=== PATIENT | female | born 1935 | race Caucasian/White ===

== ENCOUNTER 2018-01-08 14:17 | Inpatient (IN) | END 2018-01-12 18:20 | disposition home or self-care (01) | DRG 696 ==

== ENCOUNTER 2018-02-01 11:13 | Emergency (ER) | END 2018-02-01 14:00 | disposition left against medical advice (07) ==

== ENCOUNTER 2018-03-02 13:21 | Emergency (ER) | END 2018-03-02 17:07 | disposition home or self-care (01) ==

== ENCOUNTER 2018-12-20 00:35 | Emergency (ER) | payer MEDICARE, OTHER ==
[~2018-12-20] VITALS: Ht 157.5 cm; Wt 60.0 kg
[~2018-12-20 00:35] MED LIST: ACET500C5 PO; AMOX1TAB9 PO; ATEN-51 PO; CRAN1TAB5 PO; DOCU-144 PO; ISOS30TA67 PO; NITR-58 PO; PHEN97.5 PO; POLY17PO6 PO; RANI150T5 PO; TRAM50TA PO; VALS1TAB76 PO; WARF1TAB PO
[2018-12-20 00:43] VITALS: Ht 157.5 cm; Wt 60.0 kg
== END 2018-12-20 00:45 | disposition left against medical advice (07) ==
LOC: E/R 00:35
DX: Z53.21 Procedure and treatment not carried out due to patient leaving prior to being seen by health care provider (principal)